=== PATIENT | female | born 1980 | race Hispanic/Latino ===

== ENCOUNTER 2023-04-06 03:26 | Inpatient (IN) | payer OTHER ==
[~2023-04-06] VITALS: Ht 162.6 cm; Wt 84.8 kg
[2023-04-06 12:33] VITALS: BP 161/86; PULSE 85; RESP 16
[2023-04-06] MEDS ORDERED: AMLODIPINE 5 MG TAB PO ONE (13:17)
[2023-04-06] MEDS ORDERED: ACETAMINOPHEN 650 MG SUPPOSITORY RC PRN (13:30)
[2023-04-06 13:48] LABS: BASOPHILS # (AUTO) 0.08 K/uL (0.00-0.20); BASOPHILS % (AUTO) 1.1 % (0.0-5.0); EOSINOPHILS # (AUTO) 1.28 K/uL (0.00-0.70); HEMATOCRIT 25.1 % (36-48); IMMATURE GRANULOCYTE ABSOLUTE 0.03 K/uL (0-1); LYMPHOCYTES # (AUTO) 1.1 K/uL (1.0-4.8); LYMPHOCYTES % (AUTO) 14.9 % (21.0-51.0); MEAN CORPUSCULAR HEMOGLOBIN 25.5 pg (27.0-33.0); MEAN CORPUSCULAR HGB CONC 31.1 g/dL (32.0-36.0); MONOCYTES # (AUTO) 0.4 K/uL (0.1-1.0); MONOCYTES % (AUTO) 5.9 % (3.0-13.0); NEUTROPHILS # (AUTO) 4.2 K/uL (1.8-7.7); NEUTROPHILS % (AUTO) 59.7 % (40.0-77.0); PLATELET COUNT (AUTO) 434 K/uL (130-400); RED BLOOD CELL COUNT(AUTO) 3.06 MIL/uL (4.00-5.50); RED CELL DISTRIBUTION WIDTH 14.8 % (11.0-15.5); WHITE BLOOD COUNT (AUTO) 7.1 K/uL (4.8-10.8)
[2023-04-06] MEDS: MUPIROCIN OINTMENT 22 GM TUBE TP SCH ×2 (14:00→22:46)
[2023-04-06 14:16] LABS: ALBUMIN 2.4 g/dL (3.5-5.0); BILIRUBIN,TOTAL 0.2 mg/dL (0.2-1.0); CREATININE 1.3 mg/dL (0.5-1.5); INR 0.92 (0.85-1.15); PARTIAL THROMBOPLASTIN TIME 23.3 SEC (26.3-35.5); POTASSIUM 4.4 mmol/L (3.5-5.1); PROTHROMBIN TIME 9.9 SEC (9.6-11.6); TOTAL PROTEIN, SERUM 5.9 g/dL (6.0-8.3)
[2023-04-06] MEDS ORDERED: ONDANSETRON 4MG INJ IVP PRN (14:30)
[2023-04-06] MEDS: GABAPENTIN 300 MG CAPSULE PO SCH ×2 (16:28→20:33)
[2023-04-06] MEDS: FUROSEMIDE 20MG VIAL IV SCH (16:29)
[2023-04-06 16:33] VITALS: BP 163/85; PULSE 81; RESP 16
[2023-04-06] MEDS: INSULIN HUMULIN R 100 UNIT/ML 3ML SQ SCH ×2 (16:45→22:40)
[2023-04-06] MEDS ORDERED: LACTULOSE 20 GM/30 ML UDCUP PO ONE (17:00)
[2023-04-06] MEDS ORDERED: POLYETHYLENE GLYCOL 3350 17 GM POWD.PACK PO ONE (17:00)
[2023-04-06 17:09] LABS: SARS-CoV-2, RNA, NAAT NEGATIVE SARS CoV-2 (NEGATIVE)
[2023-04-06 17:15] LABS: INFLUENZA TYPE A Negative For Type A (NEGATIVE); INFLUENZA TYPE B Negative For Type B (NEGATIVE)
[2023-04-06 17:43] LABS: APPEARANCE,URINE CLEAR (CLEAR); BILIRUBIN,URINE NEGATIVE (NEGATIVE); COLOR,URINE COLORLESS (YELLOW); GLUCOSE, URINE (UA) >=1000 mg/dL (NEGATIVE); KETONES,URINE NEGATIVE (NEGATIVE); LEUKOCYTE ESTERASE ,URINE NEGATIVE Leu/uL (NEGATIVE); NITRATE,URINE NEGATIVE (NEGATIVE); OCCULT BLOOD,URINE MODERATE (NEGATIVE); PH,URINE 6.5 (5.0-8.0); PROTEIN,URINE 20 mg/dL (NEGATIVE); UROBILINOGEN,URINE 0.2 mg/dL (0.2-1.0)
[2023-04-06 17:44] LABS: ADD UA MICROSCOPIC YES
[2023-04-06 17:51] LABS: AMPHET/METH SCREEN,URINE NEGATIVE (NEGATIVE); BARBITURATE SCREEN, URINE NEGATIVE (NEGATIVE); BENZODIAZEPINES SCREEN,URINE NEGATIVE (NEGATIVE); CANNABINOID SCREEN,URINE NEGATIVE (NEGATIVE); COCAINE SCREEN,URINE NEGATIVE (NEGATIVE); OPIATE SCREEN,URINE NEGATIVE (NEGATIVE); PHENCYCLIDINE SCREEN,URINE NEGATIVE (NEGATIVE)
[2023-04-06 18:04] LABS: RBC,URINE 26-50 /HPF (0-1); SQUAMOUS EPITHELIAL CELL,UR RARE /HPF (0-2); UNCLASSIFIED CRYSTAL 2 /HPF (None Seen)
[2023-04-06 18:59] VITALS: BP 152/75; PULSE 84; RESP 18
[2023-04-06 19:35] VITALS: O2SAT 98
[2023-04-06] MEDS ORDERED: VALS320T16 PO (20:12)
[2023-04-06] MEDS ORDERED: FERR325T29 PO (20:12)
[2023-04-06] MEDS ORDERED: DULO60CA64 PO (20:12)
[2023-04-06] MEDS ORDERED: HYDR12.54 PO (20:12)
[2023-04-06] MEDS ORDERED: METO10TA3 PO (20:12)
[2023-04-06] MEDS ORDERED: FURO20TA4 PO (20:12)
[2023-04-06] MEDS ORDERED: SITA1TAB6 PO (20:12)
[2023-04-06] MEDS ORDERED: TRAZ-187 PO (20:13)
[2023-04-06] MEDS ORDERED: GLIP10TA9 PO (20:16)
[2023-04-06] MEDS ORDERED: ALPR0.5T PO (20:18)
[2023-04-06] MEDS: SIMVASTATIN 20 MG TABLET PO SCH (20:33)
[2023-04-06] MEDS: METOPROLOL TARTRATE 25 MG TAB PO SCH (20:33)
[2023-04-06] MEDS: ACETAMINOPHEN 325 MG TAB PO PRN (21:31)
[2023-04-06 23:00] VITALS: BP 133/71; PULSE 74; RESP 18
[2023-04-07] VITALS (13 sets, daily range): BP systolic 123–160; BP diastolic 62–88; PULSE 72–87; RESP 12–20; O2SAT 97–98
[2023-04-07 01:46] LABS: CREATINE KINASE, TOTAL 47 U/L (21-232); MYOGLOBIN 43 ng/mL (10-92)
[2023-04-07] MEDS: FUROSEMIDE 20MG VIAL IV SCH ×2 (01:59→13:58)
[2023-04-07] MEDS: ACETAMINOPHEN 325 MG TAB PO PRN ×3 (03:17→22:40)
[2023-04-07 04:04] LABS: ABG BASE EXCESS 4.4 mmol/L (-2.0-3.0); ABG HCO3 29.9 mmol/L (21.0-28.0); ABG OXYGEN SATURATION 91.7 % (95.0-99.0); ABG PCO2 48 mmHg (32-45); ABG PH 7.415 (7.35-7.450); DEVICE COMMENT RR RN; PO2, ARTERIAL BG 61.6 mmHg (83.0-108.0); VENT MODE, BG RA (ROOM AIR)
[2023-04-07 04:27] LABS: BASOPHILS # (AUTO) 0.09 K/uL (0.00-0.20); BASOPHILS % (AUTO) 1.2 % (0.0-5.0); EOSINOPHILS # (AUTO) 1.46 K/uL (0.00-0.70); EOSINOPHILS % (AUTO) 19.7 % (0.0-8.0); HEMATOCRIT 22.3 % (36-48); IMMATURE GRANULOCYTE ABSOLUTE 0.03 K/uL (0-1); LYMPHOCYTES # (AUTO) 1.8 K/uL (1.0-4.8); MEAN CORPUSCULAR HEMOGLOBIN 25.3 pg (27.0-33.0); MEAN CORPUSCULAR HGB CONC 30.9 g/dL (32.0-36.0); MEAN CORPUSCULAR VOLUME 81.7 fL (79-99); MONOCYTES # (AUTO) 0.6 K/uL (0.1-1.0); MONOCYTES % (AUTO) 7.7 % (3.0-13.0); NEUTROPHILS # (AUTO) 3.5 K/uL (1.8-7.7); PLATELET COUNT (AUTO) 376 K/uL (130-400); RED BLOOD CELL COUNT(AUTO) 2.73 MIL/uL (4.00-5.50); RED CELL DISTRIBUTION WIDTH 14.6 % (11.0-15.5); WHITE BLOOD COUNT (AUTO) 7.4 K/uL (4.8-10.8)
[2023-04-07 04:35] LABS: B-TYPE NATRIURETIC PEPTIDE 993 pg/mL (0-100)
[2023-04-07 04:36] LABS: INR < 0.93 (0.85-1.15); PROTHROMBIN TIME 10.1 SEC (9.6-11.6)
[2023-04-07 04:37] LABS: ALBUMIN 2.2 g/dL (3.5-5.0); BILIRUBIN,TOTAL 0.2 mg/dL (0.2-1.0); CREATININE 1.5 mg/dL (0.5-1.5); PARTIAL THROMBOPLASTIN TIME 24.9 SEC (26.3-35.5); POTASSIUM 3.8 mmol/L (3.5-5.1); TOTAL PROTEIN, SERUM 5.8 g/dL (6.0-8.3)
[2023-04-07 04:53] LABS: HEMOGLOBIN A1C 9.8 % (4.0-6.0)
[2023-04-07] MEDS: INSULIN HUMULIN R 100 UNIT/ML 3ML SQ SCH ×4 (05:13→22:39)
[2023-04-07 07:07] LABS: HEMATOCRIT 22.6 % (36-48)
[2023-04-07] MEDS: MUPIROCIN OINTMENT 22 GM TUBE TP SCH ×3 (09:30→22:39)
[2023-04-07] MEDS: ENOXAPARIN SODIUM 40 MG/0.4 ML SYRINGE SQ SCH (09:42)
[2023-04-07] MEDS: FERROUS SULFATE 325 MG TABLET.DR PO SCH (09:45)
[2023-04-07] MEDS: METOPROLOL TARTRATE 25 MG TAB PO SCH ×2 (09:45→22:25)
[2023-04-07] MEDS: GABAPENTIN 300 MG CAPSULE PO SCH ×3 (09:45→22:25)
[2023-04-07] MEDS: PANTOPRAZOLE 40 MG TAB DR PO SCH (09:45)
[2023-04-07] MEDS: ASPIRIN 81MG CHEW TAB PO SCH (09:45)
[2023-04-07] MEDS: LOSARTAN 50 MG TABLET PO SCH (09:45)
[2023-04-07] MEDS: POLYETHYLENE GLYCOL 3350 17 GM POWD.PACK PO SCH (09:46)
[2023-04-07] MEDS: AMLODIPINE 5 MG TAB PO SCH (09:46)
[2023-04-07] MEDS ORDERED: IPRATROPIUM 0.5 MG/2.5 ML INH IH ONE (10:54)
[2023-04-07] MEDS ORDERED: INSULIN GLARGINE 100 UNITS/ML 10 ML VIAL SQ ONE (10:58)
[2023-04-07] MEDS ORDERED: ALPRAZOLAM 0.5 MG TABLET PO PRN (11:00)
[2023-04-07] MEDS: METOCLOPRAMIDE 10 MG TABLET PO SCH ×2 (13:58→22:25)
[2023-04-07] MEDS: CEFAZOLIN SODIUM 2 GM VIAL IVPB SCH (19:00)
[2023-04-07] MEDS ORDERED: TRAZODONE HCL 100 MG TABLET PO SCH (21:00)
[2023-04-07] MEDS: SIMVASTATIN 20 MG TABLET PO SCH (22:25)
[2023-04-07] MEDS: INSULIN GLARGINE 100 UNITS/ML 10 ML VIAL SQ SCH (22:38)
[2023-04-07] MEDS: IPRATROPIUM 0.5 MG/2.5 ML INH IH SCH (23:16)
[2023-04-08] VITALS (32 sets, daily range): BP systolic 96–200; BP diastolic 53–81; PULSE 60–88; RESP 5–19; TEMP 97.6–99; O2SAT 97–100
[2023-04-08 04:07] LABS: BASOPHILS # (AUTO) 0.09 K/uL (0.00-0.20); BASOPHILS % (AUTO) 1.1 % (0.0-5.0); EOSINOPHILS % (AUTO) 15.9 % (0.0-8.0); HEMATOCRIT 21.1 % (36-48); IMMATURE GRANULOCYTE ABSOLUTE 0.07 K/uL (0-1); LYMPHOCYTES # (AUTO) 2.6 K/uL (1.0-4.8); LYMPHOCYTES % (AUTO) 31.3 % (21.0-51.0); MEAN CORPUSCULAR HEMOGLOBIN 25.4 pg (27.0-33.0); MEAN CORPUSCULAR HGB CONC 31.3 g/dL (32.0-36.0); MEAN CORPUSCULAR VOLUME 81.2 fL (79-99); MONOCYTES # (AUTO) 0.7 K/uL (0.1-1.0); NEUTROPHILS # (AUTO) 3.5 K/uL (1.8-7.7); NEUTROPHILS % (AUTO) 42.8 % (40.0-77.0); PLATELET COUNT (AUTO) 399 K/uL (130-400); RED CELL DISTRIBUTION WIDTH 14.9 % (11.0-15.5); WHITE BLOOD COUNT (AUTO) 8.2 K/uL (4.8-10.8)
[2023-04-08 04:08] LABS: CREATININE 1.5 mg/dL (0.5-1.5)
[2023-04-08 04:15] LABS: B-TYPE NATRIURETIC PEPTIDE 1220 pg/mL (0-100)
[2023-04-08 04:17] LABS: ALBUMIN 2.1 g/dL (3.5-5.0); BILIRUBIN,TOTAL 0.2 mg/dL (0.2-1.0); MAGNESIUM 2.1 mg/dL (1.80-2.40); TOTAL PROTEIN, SERUM 5.6 g/dL (6.0-8.3)
[2023-04-08 04:18] LABS: INR < 0.93 (0.85-1.15); PROTHROMBIN TIME 10.3 SEC (9.6-11.6)
[2023-04-08 04:20] LABS: PARTIAL THROMBOPLASTIN TIME 25.1 SEC (26.3-35.5)
[2023-04-08] MEDS: IPRATROPIUM 0.5 MG/2.5 ML INH IH SCH ×3 (06:46→18:00)
[2023-04-08] MEDS: INSULIN HUMULIN R 100 UNIT/ML 3ML SQ SCH ×2 (07:30→11:30)
[2023-04-08] MEDS: INSULIN GLARGINE 100 UNITS/ML 10 ML VIAL SQ SCH (07:30)
[2023-04-08] MEDS: LOSARTAN 50 MG TABLET PO SCH (07:39)
[2023-04-08] MEDS: ASPIRIN 81MG CHEW TAB PO SCH (07:39)
[2023-04-08] MEDS: POLYETHYLENE GLYCOL 3350 17 GM POWD.PACK PO SCH (07:40)
[2023-04-08] MEDS: DULOXETINE HCL 30 MG CAP PO SCH (07:40)
[2023-04-08] MEDS: PANTOPRAZOLE 40 MG TAB DR PO SCH (07:40)
[2023-04-08] MEDS: METOCLOPRAMIDE 10 MG TABLET PO SCH ×2 (07:40→12:58)
[2023-04-08] MEDS: GABAPENTIN 300 MG CAPSULE PO SCH ×2 (07:40→12:58)
[2023-04-08] MEDS: AMLODIPINE 5 MG TAB PO SCH (07:40)
[2023-04-08] MEDS: FERROUS SULFATE 325 MG TABLET.DR PO SCH (07:40)
[2023-04-08] MEDS: ENOXAPARIN SODIUM 40 MG/0.4 ML SYRINGE SQ SCH (07:40)
[2023-04-08] MEDS: NICOTINE 14 MG/ 24 HR PATCH TD SCH ×2 (07:48→07:49)
[2023-04-08] MEDS: METOPROLOL TARTRATE 25 MG TAB PO SCH (07:49)
[2023-04-08] MEDS: MUPIROCIN OINTMENT 22 GM TUBE TP SCH ×3 (07:51→21:00)
[2023-04-08] MEDS ORDERED: HYDROCHLOROTHIAZIDE 25 MG TABLET PO SCH (09:00)
[2023-04-08] MEDS ORDERED: HYDROCHLOROTHIAZIDE PO SCH (09:00)
[2023-04-08] MEDS ORDERED: DULOXETINE HCL PO SCH (09:00)
[2023-04-08] MEDS ORDERED: NOREPINEPHRINE BITARTRATE 8 MG in DEXTROSE 5%-WATER 250 ML IV PRN (09:30)
[2023-04-08] MEDS ORDERED: AMINOCAPROIC ACID 5,000MG VIAL 15,000 MG in 0.9% NACL 500ML IV.SOLN 420 ML IV PRN (09:30)
[2023-04-08] MEDS ORDERED: EPINEPHRINE PF 1MG (1:1,000) 10 MG in 0.9% NACL 250ML 240 ML IV PRN ×2 (09:30→15:30)
[2023-04-08] MEDS: FUROSEMIDE 20MG VIAL IV SCH (12:57)
[2023-04-08 13:44] LABS: HEMATOCRIT 30.5 % (36-48)
[2023-04-08] MEDS ORDERED: LIDOCAINE PF 100MG/5ML (2%) SYRINGE 5ML ONE (14:46)
[2023-04-08] MEDS ORDERED: ESMOLOL HCL 10 MG/ML 10 ML VIAL ONE (14:46)
[2023-04-08] MEDS ORDERED: PROTAMINE SULFATE 10 MG/ML 25ML VIAL IV ONE (14:46)
[2023-04-08] MEDS ORDERED: KETAMINE 50MG/ML SYRINGE 50 MG/ML DISP.SYRIN ONE ×2 (14:47→17:58)
[2023-04-08] MEDS ORDERED: NOREPINEPHRINE BITARTRATE 1 MG/1 ML ML IV ONE (14:47)
[2023-04-08] MEDS ORDERED: ROCURONIUM 10MG/1ML SYR 10 MG/ML ML ONE ×2 (14:47→15:37)
[2023-04-08] MEDS ORDERED: FENTANYL CITRATE PF 50 MCG/1 ML 20ML VIAL IJ ONE (14:47)
[2023-04-08] MEDS ORDERED: AMINOCAPROIC ACID 5,000MG VIAL ONE (14:47)
[2023-04-08] MEDS ORDERED: MIDAZOLAM HCL 1 MG/ML 2ML VIAL ONE (14:47)
[2023-04-08] MEDS ORDERED: PROPOFOL 10 MG/ML 20ML VIAL IV ONE (14:47)
[2023-04-08] MEDS ORDERED: EPINEPHRINE PF 1MG (1:1,000) 1 MG/ML AMP ONE (14:47)
[2023-04-08] MEDS ORDERED: FENTANYL CITRATE PF 50 MCG/1 ML 5ML AMP IV ONE ×3 (14:50→19:17)
[2023-04-08] MEDS ORDERED: CEFAZOLIN SODIUM 2 GM VIAL ONE (15:04)
[2023-04-08] MEDS ORDERED: CEFAZOLIN SODIUM 1 GM VIAL ONE (15:25)
[2023-04-08] MEDS ORDERED: PAPAVERINE HCL 30 MG/ML 2ML VIAL ONE (15:26)
[2023-04-08] MEDS ORDERED: GLUCAGON 1MG KIT 1 MG ML IM PRN (15:30)
[2023-04-08] MEDS ORDERED: INSULIN REGULAR, HUMAN 3ML 100 UNIT in 0.9%NACL 100ML 99 ML IV SCH ×2 (15:30)
[2023-04-08] MEDS ORDERED: NITROGLYCERIN 50MG/D5W 250ML 250 BOT IV SCH (15:30)
[2023-04-08] MEDS: CEFAZOLIN SODIUM 2 GM VIAL IVPB SCH ×3 (15:30→20:40)
[2023-04-08] MEDS ORDERED: 0.9% NACL 500ML IV.SOLN 500 ML IV SCH (15:30)
[2023-04-08] MEDS ORDERED: MAGNESIUM HYDROXIDE 30 ML/UDCUP PO PRN (15:30)
[2023-04-08] MEDS ORDERED: ALBUMIN (HUMAN) 5% 250 ML IV PRN (15:30)
[2023-04-08] MEDS ORDERED: 0.9%NACL 1000ML 1,000 ML IV SCH (15:30)
[2023-04-08] MEDS ORDERED: ACETAMINOPHEN 650 MG SUPPOSITORY RC PRN (15:30)
[2023-04-08] MEDS ORDERED: NOREPINEPHRINE BITARTRATE 8 MG in 0.9% NACL 250ML 250 ML IV PRN (15:30)
[2023-04-08] MEDS ORDERED: CALCIUM GLUC 1GM 1 GM in 0.9%NACL 50ML 50 ML IV PRN (15:30)
[2023-04-08] MEDS ORDERED: SODIUM BICARB 50MEQ 50ML VIAL IV PRN (15:30)
[2023-04-08] MEDS ORDERED: POTASSIUM PHOS 15 mMOL+NS250ML 250 ML IV PRN (15:30)
[2023-04-08] MEDS ORDERED: 0.9%NACL 10ML VIAL IVP PRN (15:30)
[2023-04-08] MEDS ORDERED: MORPHINE 2 MG SYG IV PRN (15:30)
[2023-04-08] MEDS ORDERED: DEXTROSE 50%-WATER 50 ML DISP.SYRIN IV PRN (15:30)
[2023-04-08] MEDS ORDERED: MAGNESIUM 2GM PREMIX 50ML 50 ML IV PRN (15:30)
[2023-04-08] MEDS ORDERED: LACTULOSE 20 GM/30 ML UDCUP PO PRN (15:30)
[2023-04-08] MEDS ORDERED: AMINOCAPROIC ACID 5,000MG VIAL 15,000 MG in 0.9% NACL 250ML 250 ML IV SCH (15:30)
[2023-04-08] MEDS ORDERED: PROPOFOL 1000 MG/100 ML 100 ML IV PRN (15:30)
[2023-04-08] MEDS ORDERED: ACETAMINOPHEN 325 MG TAB PO PRN (15:30)
[2023-04-08] MEDS ORDERED: MORPHINE 4 MG SYG IV PRN (15:30)
[2023-04-08 15:42] LABS: ABG BASE EXCESS 2.3 mmol/L (-2.0-3.0); ABG HCO3 27.5 mmol/L (21.0-28.0); ABG OXYGEN SATURATION 98.8 % (95.0-99.0); ABG PCO2 46 mmHg (32-45); ABG PH 7.394 (7.35-7.450); CARBON MONOXIDE 1.7; DEVICE COMMENT 1; HHb 1.2; PO2, ARTERIAL BG 186.9 mmHg (83.0-108.0)
[2023-04-08] MEDS ORDERED: ASPIRIN 81MG CHEW TAB NG ONE (19:00)
[2023-04-08] MEDS ORDERED: CALCIUM GLUC 1GM/10ML VIAL ONE (19:13)
[2023-04-08 19:20] LABS: ABG BASE EXCESS 3.1 mmol/L (-2.0-3.0); ABG HCO3 25.6 mmol/L (21.0-28.0); ABG PCO2 31 mmHg (32-45); ABG PH 7.542 (7.35-7.450); CARBON MONOXIDE 1.3; DEVICE COMMENT 3; PO2, ARTERIAL BG 400.9 mmHg (83.0-108.0)
[2023-04-08 19:42] LABS: ABG BASE EXCESS 1.2 mmol/L (-2.0-3.0); ABG HCO3 25.1 mmol/L (21.0-28.0); ABG OXYGEN SATURATION 99.4 % (95.0-99.0); ABG PCO2 36 mmHg (32-45); ABG PH 7.458 (7.35-7.450); CARBON MONOXIDE 1.6; HHb 0.6; PO2, ARTERIAL BG 456.5 mmHg (83.0-108.0); VENT MODE, BG SIMV,PS10 (ROOM AIR)
[2023-04-08 20:10] LABS: HEMATOCRIT 23.8 % (36-48); MEAN CORPUSCULAR HEMOGLOBIN 26.3 pg (27.0-33.0); MEAN CORPUSCULAR HGB CONC 31.9 g/dL (32.0-36.0); MEAN CORPUSCULAR VOLUME 82.4 fL (79-99); RED BLOOD CELL COUNT(AUTO) 2.89 MIL/uL (4.00-5.50); RED CELL DISTRIBUTION WIDTH 14.9 % (11.0-15.5); WHITE BLOOD COUNT (AUTO) 14.4 K/uL (4.8-10.8)
[2023-04-08] MEDS: ONDANSETRON 4MG INJ IV PRN (20:14)
[2023-04-08] MEDS: POTASSIUM CHLORIDE 20MEQ/100ML 100 ML IV PRN ×3 (20:16→22:26)
[2023-04-08 20:20] LABS: INR 1.02 (0.85-1.15); PROTHROMBIN TIME 11.8 SEC (9.6-11.6)
[2023-04-08 20:21] LABS: PARTIAL THROMBOPLASTIN TIME 21.1 SEC (26.3-35.5)
[2023-04-08 20:26] LABS: ABG BASE EXCESS -0.4 mmol/L (-2.0-3.0); ABG HCO3 22.6 mmol/L (21.0-28.0); ABG OXYGEN SATURATION 99.1 % (95.0-99.0); ABG PCO2 30 mmHg (32-45); ABG PH 7.494 (7.35-7.450); CARBON MONOXIDE 1.1; HHb 0.9; PO2, ARTERIAL BG 396.4 mmHg (83.0-108.0); VENT MODE, BG SIMV,PS10 (ROOM AIR)
[2023-04-08 20:26] LABS: CREATININE 1.3 mg/dL (0.5-1.5); MAGNESIUM 1.5 mg/dL (1.80-2.40); PHOSPHORUS 4.7 mg/dL (2.5-4.9)
[2023-04-08 21:17] LABS: ABG BASE EXCESS 2.4 mmol/L (-2.0-3.0); ABG HCO3 26.7 mmol/L (21.0-28.0); ABG OXYGEN SATURATION 98.8 % (95.0-99.0); ABG PCO2 40 mmHg (32-45); ABG PH 7.445 (7.35-7.450); HHb 1.2; PO2, ARTERIAL BG 204.5 mmHg (83.0-108.0); VENT MODE, BG SIMV,PS10 (ROOM AIR)
[2023-04-08] MEDS: HYDROCODONE/ACETAMINOPHEN 7.5/325 MG TAB PO PRN (21:20)
[2023-04-08 22:19] LABS: ABG BASE EXCESS 3.1 mmol/L (-2.0-3.0); ABG HCO3 28.1 mmol/L (21.0-28.0); ABG OXYGEN SATURATION 98.1 % (95.0-99.0); ABG PCO2 45 mmHg (32-45); ABG PH 7.416 (7.35-7.450); CARBON MONOXIDE 1.5; HHb 1.9; PO2, ARTERIAL BG 133.9 mmHg (83.0-108.0); VENT MODE, BG SIMV (ROOM AIR)
[2023-04-08] MEDS: DOCUSATE SODIUM 100 MG CAP PO SCH (22:31)
[2023-04-08] MEDS: FAMOTIDINE 20MG VIAL IV SCH (22:31)
[2023-04-08] MEDS: SIMVASTATIN 20 MG TABLET PO SCH (22:31)
[2023-04-08 23:11] LABS: ABG BASE EXCESS 2.7 mmol/L (-2.0-3.0); ABG HCO3 27.5 mmol/L (21.0-28.0); ABG OXYGEN SATURATION 97.9 % (95.0-99.0); ABG PCO2 44 mmHg (32-45); ABG PH 7.418 (7.35-7.450); CARBON MONOXIDE 1.5; HHb 2.1; PO2, ARTERIAL BG 128.6 mmHg (83.0-108.0)
[2023-04-09] VITALS (82 sets, daily range): BP systolic 1–198; BP diastolic 0–294; PULSE 74–89; RESP 5–63; TEMP 99.6–100.8; O2SAT 96–100
[2023-04-09 00:33] LABS: ABG BASE EXCESS 2.6 mmol/L (-2.0-3.0); ABG HCO3 27.5 mmol/L (21.0-28.0); ABG OXYGEN SATURATION 98.3 % (95.0-99.0); ABG PCO2 45 mmHg (32-45); ABG PH 7.409 (7.35-7.450); CARBON MONOXIDE 1.9; HHb 1.7; PO2, ARTERIAL BG 136.9 mmHg (83.0-108.0); VENT MODE, BG AM,40 (ROOM AIR)
[2023-04-09 03:59] LABS: HEMATOCRIT 24.7 % (36-48); MEAN CORPUSCULAR HGB CONC 31.2 g/dL (32.0-36.0); MEAN CORPUSCULAR VOLUME 83.4 fL (79-99); RED BLOOD CELL COUNT(AUTO) 2.96 MIL/uL (4.00-5.50); RED CELL DISTRIBUTION WIDTH 15.2 % (11.0-15.5); WHITE BLOOD COUNT (AUTO) 14.1 K/uL (4.8-10.8)
[2023-04-09 04:08] LABS: INR 0.94 (0.85-1.15); PROTHROMBIN TIME 10.9 SEC (9.6-11.6)
[2023-04-09 04:09] LABS: PARTIAL THROMBOPLASTIN TIME 23.8 SEC (26.3-35.5)
[2023-04-09 04:12] LABS: CREATININE 1.3 mg/dL (0.5-1.5); MAGNESIUM 2.3 mg/dL (1.80-2.40); PHOSPHORUS 4.6 mg/dL (2.5-4.9); POTASSIUM 4.3 mmol/L (3.5-5.1)
[2023-04-09] MEDS: CEFAZOLIN SODIUM 2 GM VIAL IVPB SCH ×3 (04:12→18:08)
[2023-04-09 05:10] LABS: ABG BASE EXCESS 3.4 mmol/L (-2.0-3.0); ABG HCO3 28.7 mmol/L (21.0-28.0); ABG OXYGEN SATURATION 95.3 % (95.0-99.0); ABG PCO2 48 mmHg (32-45); ABG PH 7.398 (7.35-7.450); CARBON MONOXIDE 1.8; HHb 4.6; PO2, ARTERIAL BG 85.8 mmHg (83.0-108.0); VENT MODE, BG NC,28 (ROOM AIR)
[2023-04-09] MEDS: IPRATROPIUM 0.5 MG/2.5 ML INH IH SCH ×5 (06:48→23:50)
[2023-04-09 07:38] LABS: ABG BASE EXCESS 1.5 mmol/L (-2.0-3.0); ABG HCO3 26.4 mmol/L (21.0-28.0); ABG OXYGEN SATURATION 96.6 % (95.0-99.0); ABG PCO2 43 mmHg (32-45); ABG PH 7.404 (7.35-7.450); HHb 3.3; PO2, ARTERIAL BG 98.4 mmHg (83.0-108.0); VENT MODE, BG 2LNC (ROOM AIR)
[2023-04-09] MEDS: DOCUSATE SODIUM 100 MG CAP PO SCH ×2 (07:48→20:33)
[2023-04-09] MEDS: FUROSEMIDE 20MG VIAL IV SCH ×2 (07:48→20:33)
[2023-04-09] MEDS: NICOTINE 14 MG/ 24 HR PATCH TD SCH (07:48)
[2023-04-09] MEDS: POLYETHYLENE GLYCOL 3350 17 GM POWD.PACK PO SCH (07:48)
[2023-04-09] MEDS: FERROUS SULFATE 325 MG TABLET.DR PO SCH (07:48)
[2023-04-09] MEDS: DULOXETINE HCL 30 MG CAP PO SCH (07:48)
[2023-04-09] MEDS: ASPIRIN 81MG CHEW TAB PO SCH (07:49)
[2023-04-09] MEDS: HYDROCODONE/ACETAMINOPHEN 5/325 MG TAB PO PRN (07:50)
[2023-04-09] MEDS: ONDANSETRON 4MG INJ IV PRN ×2 (07:51→22:27)
[2023-04-09] MEDS: MUPIROCIN OINTMENT 22 GM TUBE TP SCH ×3 (09:00→19:50)
[2023-04-09] MEDS ORDERED: HEPARIN 10,000 UNIT/10ML (1,000 UNIT/ML) VIAL ONE (10:22)
[2023-04-09] MEDS ORDERED: MORPHINE 2 MG SYG IV PRN (10:30)
[2023-04-09] MEDS: HYDROCODONE/ACETAMINOPHEN 7.5/325 MG TAB PO PRN ×3 (12:08→23:39)
[2023-04-09] MEDS: SIMVASTATIN 20 MG TABLET PO SCH (20:33)
[2023-04-09] MEDS: FAMOTIDINE 20MG VIAL IV SCH (20:33)
[2023-04-09] MEDS: METOPROLOL TARTRATE 25 MG TAB PO SCH (20:33)
[2023-04-10] VITALS (37 sets, daily range): BP systolic 111–165; BP diastolic 58–83; PULSE 79–92; RESP 15–24; O2SAT 95–100
[2023-04-10 03:45] LABS: HEMATOCRIT 21.9 % (36-48); MEAN CORPUSCULAR HEMOGLOBIN 25.8 pg (27.0-33.0); MEAN CORPUSCULAR HGB CONC 30.6 g/dL (32.0-36.0); MEAN CORPUSCULAR VOLUME 84.2 fL (79-99); RED BLOOD CELL COUNT(AUTO) 2.6 MIL/uL (4.00-5.50); RED CELL DISTRIBUTION WIDTH 15.9 % (11.0-15.5); WHITE BLOOD COUNT (AUTO) 13.8 K/uL (4.8-10.8)
[2023-04-10 04:02] LABS: CREATININE 1.3 mg/dL (0.5-1.5); POTASSIUM 4.1 mmol/L (3.5-5.1)
[2023-04-10 04:43] LABS: HEMATOCRIT 23.9 % (36-48)
[2023-04-10] MEDS: ONDANSETRON 4MG INJ IV PRN ×3 (05:35→23:04)
[2023-04-10] MEDS: HYDROCODONE/ACETAMINOPHEN 7.5/325 MG TAB PO PRN ×3 (05:35→19:33)
[2023-04-10] MEDS: IPRATROPIUM 0.5 MG/2.5 ML INH IH SCH ×4 (06:55→23:43)
[2023-04-10] MEDS: DOCUSATE SODIUM 100 MG CAP PO SCH ×2 (09:00→21:13)
[2023-04-10] MEDS: POLYETHYLENE GLYCOL 3350 17 GM POWD.PACK PO SCH (09:00)
[2023-04-10] MEDS: METOPROLOL TARTRATE 25 MG TAB PO SCH ×2 (09:11→21:13)
[2023-04-10] MEDS: NICOTINE 14 MG/ 24 HR PATCH TD SCH (09:11)
[2023-04-10] MEDS: DULOXETINE HCL 30 MG CAP PO SCH (09:12)
[2023-04-10] MEDS: FERROUS SULFATE 325 MG TABLET.DR PO SCH (09:12)
[2023-04-10] MEDS: ASPIRIN 81MG CHEW TAB PO SCH (09:13)
[2023-04-10] MEDS: FUROSEMIDE 20 MG TABLET PO SCH ×2 (09:13→21:13)
[2023-04-10] MEDS: MUPIROCIN OINTMENT 22 GM TUBE TP SCH ×3 (09:30→21:15)
[2023-04-10] MEDS: ACETAMINOPHEN 325 MG TAB PO PRN ×3 (09:30→23:01)
[2023-04-10] MEDS: INSULIN HUMULIN R 100 UNIT/ML 3ML SQ SCH ×3 (11:31→21:15)
[2023-04-10] MEDS ORDERED: INSULIN GLARGINE 100 UNITS/ML 10 ML VIAL SQ SCH (21:00)
[2023-04-10] MEDS: SIMVASTATIN 20 MG TABLET PO SCH (21:13)
[2023-04-10] MEDS: FAMOTIDINE 20MG VIAL IV SCH (21:13)
[2023-04-11] VITALS (15 sets, daily range): BP systolic 125–160; BP diastolic 60–90; PULSE 76–89; RESP 18; O2SAT 95–97
[2023-04-11] MEDS: HYDROCODONE/ACETAMINOPHEN 7.5/325 MG TAB PO PRN ×2 (02:03→21:10)
[2023-04-11 05:17] LABS: HEMATOCRIT 22.5 % (36-48); MEAN CORPUSCULAR HEMOGLOBIN 26.4 pg (27.0-33.0); MEAN CORPUSCULAR HGB CONC 31.6 g/dL (32.0-36.0); MEAN CORPUSCULAR VOLUME 83.6 fL (79-99); RED BLOOD CELL COUNT(AUTO) 2.69 MIL/uL (4.00-5.50); RED CELL DISTRIBUTION WIDTH 15.8 % (11.0-15.5); WHITE BLOOD COUNT (AUTO) 13.1 K/uL (4.8-10.8)
[2023-04-11 05:33] LABS: BILIRUBIN,TOTAL 0.2 mg/dL (0.2-1.0); CREATININE 1.2 mg/dL (0.5-1.5); POTASSIUM 4.4 mmol/L (3.5-5.1)
[2023-04-11] MEDS: INSULIN HUMULIN R 100 UNIT/ML 3ML SQ SCH ×4 (06:10→20:29)
[2023-04-11] MEDS: IPRATROPIUM 0.5 MG/2.5 ML INH IH SCH ×4 (06:44→23:10)
[2023-04-11] MEDS: HYDROCODONE/ACETAMINOPHEN 5/325 MG TAB PO PRN ×2 (08:54→16:35)
[2023-04-11] MEDS: DULOXETINE HCL 30 MG CAP PO SCH (08:54)
[2023-04-11] MEDS: ENOXAPARIN SODIUM 30 MG/0.3 ML SQ SCH (08:54)
[2023-04-11] MEDS: ASPIRIN 81MG CHEW TAB PO SCH (08:55)
[2023-04-11] MEDS: DOCUSATE SODIUM 100 MG CAP PO SCH ×2 (08:55→20:27)
[2023-04-11] MEDS: METOPROLOL TARTRATE 25 MG TAB PO SCH ×2 (08:55→21:09)
[2023-04-11] MEDS: MUPIROCIN OINTMENT 22 GM TUBE TP SCH ×3 (08:56→21:15)
[2023-04-11] MEDS: FERROUS SULFATE 325 MG TABLET.DR PO SCH (08:56)
[2023-04-11] MEDS: POLYETHYLENE GLYCOL 3350 17 GM POWD.PACK PO SCH (08:56)
[2023-04-11] MEDS: FUROSEMIDE 20 MG TABLET PO SCH ×2 (08:56→20:27)
[2023-04-11] MEDS: NICOTINE 14 MG/ 24 HR PATCH TD SCH (08:57)
[2023-04-11] MEDS: SIMVASTATIN 20 MG TABLET PO SCH (20:27)
[2023-04-11] MEDS: MAGNESIUM OXIDE 400 MG TABLET PO SCH (21:11)
[2023-04-11] MEDS: INSULIN GLARGINE 100 UNITS/ML 10 ML VIAL SQ SCH (21:13)
[2023-04-11] MEDS: FAMOTIDINE 20MG VIAL IV SCH (21:50)
[2023-04-11] MEDS: ONDANSETRON 4MG INJ IV PRN (21:55)
[2023-04-12] VITALS (14 sets, daily range): BP systolic 138–172; BP diastolic 50–85; PULSE 66–80; RESP 18–20; O2SAT 95–97
[2023-04-12] MEDS: HYDROCODONE/ACETAMINOPHEN 7.5/325 MG TAB PO PRN ×3 (03:13→23:09)
[2023-04-12 04:07] LABS: CREATININE 0.9 mg/dL (0.5-1.5); POTASSIUM 3.7 mmol/L (3.5-5.1)
[2023-04-12 05:45] LABS: HEMATOCRIT 21.7 % (36-48); MEAN CORPUSCULAR HEMOGLOBIN 25.8 pg (27.0-33.0); MEAN CORPUSCULAR HGB CONC 31.8 g/dL (32.0-36.0); MEAN CORPUSCULAR VOLUME 81.3 fL (79-99); RED BLOOD CELL COUNT(AUTO) 2.67 MIL/uL (4.00-5.50); RED CELL DISTRIBUTION WIDTH 15.3 % (11.0-15.5); WHITE BLOOD COUNT (AUTO) 9.5 K/uL (4.8-10.8)
[2023-04-12] MEDS: IPRATROPIUM 0.5 MG/2.5 ML INH IH SCH ×4 (06:34→23:32)
[2023-04-12] MEDS: INSULIN HUMULIN R 100 UNIT/ML 3ML SQ SCH ×3 (07:30→17:09)
[2023-04-12] MEDS: HYDROCODONE/ACETAMINOPHEN 5/325 MG TAB PO PRN ×2 (08:22→18:53)
[2023-04-12] MEDS: MUPIROCIN OINTMENT 22 GM TUBE TP SCH ×3 (09:00→20:43)
[2023-04-12] MEDS: NICOTINE 14 MG/ 24 HR PATCH TD SCH (10:10)
[2023-04-12] MEDS: POLYETHYLENE GLYCOL 3350 17 GM POWD.PACK PO SCH (10:10)
[2023-04-12] MEDS: ASPIRIN 81MG CHEW TAB PO SCH (10:12)
[2023-04-12] MEDS: VITAMIN B COMPLEX 1 CAPSULE PO SCH (10:12)
[2023-04-12] MEDS: ENOXAPARIN SODIUM 30 MG/0.3 ML SQ SCH (10:12)
[2023-04-12] MEDS: METOPROLOL TARTRATE 25 MG TAB PO SCH ×2 (10:13→20:41)
[2023-04-12] MEDS: FERROUS SULFATE 325 MG TABLET.DR PO SCH (10:13)
[2023-04-12] MEDS: MULTIVITAMIN WITH MINERALS TABLET PO SCH (10:13)
[2023-04-12] MEDS: DULOXETINE HCL 30 MG CAP PO SCH (10:13)
[2023-04-12] MEDS: FUROSEMIDE 20 MG TABLET PO SCH ×2 (10:13→20:42)
[2023-04-12] MEDS: DOCUSATE SODIUM 100 MG CAP PO SCH ×2 (10:19→20:42)
[2023-04-12] MEDS: ONDANSETRON 4MG INJ IV PRN (11:35)
[2023-04-12 13:15] LABS: HEMATOCRIT 22.4 % (36-48)
[2023-04-12] MEDS: LISINOPRIL 20 MG TABLET PO SCH (16:25)
[2023-04-12] MEDS: GABAPENTIN 100 MG CAPSULE PO SCH (20:41)
[2023-04-12] MEDS: SIMVASTATIN 20 MG TABLET PO SCH (20:41)
[2023-04-12] MEDS: MAGNESIUM OXIDE 400 MG TABLET PO SCH (20:41)
[2023-04-12] MEDS: FAMOTIDINE 20MG VIAL IV SCH (20:42)
[2023-04-13] VITALS (19 sets, daily range): BP systolic 129–169; BP diastolic 60–96; PULSE 63–77; RESP 18–20; O2SAT 96–98
[2023-04-13] MEDS: INSULIN HUMULIN R 100 UNIT/ML 3ML SQ SCH ×5 (00:10→21:08)
[2023-04-13] MEDS: INSULIN GLARGINE 100 UNITS/ML 10 ML VIAL SQ SCH ×2 (00:11→21:09)
[2023-04-13 03:54] LABS: CREATININE 0.9 mg/dL (0.5-1.5); POTASSIUM 3.5 mmol/L (3.5-5.1)
[2023-04-13 03:58] LABS: BASOPHILS # (AUTO) 0.08 K/uL (0.00-0.20); EOSINOPHILS # (AUTO) 0.51 K/uL (0.00-0.70); EOSINOPHILS % (AUTO) 6.2 % (0.0-8.0); IMMATURE GRANULOCYTE ABSOLUTE 0.15 K/uL (0-1); LYMPHOCYTES # (AUTO) 1.6 K/uL (1.0-4.8); LYMPHOCYTES % (AUTO) 19.5 % (21.0-51.0); MEAN CORPUSCULAR HEMOGLOBIN 25.5 pg (27.0-33.0); MEAN CORPUSCULAR HGB CONC 30.5 g/dL (32.0-36.0); MEAN CORPUSCULAR VOLUME 83.7 fL (79-99); MONOCYTES # (AUTO) 0.9 K/uL (0.1-1.0); MONOCYTES % (AUTO) 10.9 % (3.0-13.0); NEUTROPHILS % (AUTO) 60.6 % (40.0-77.0); PLATELET COUNT (AUTO) 469 K/uL (130-400); RED BLOOD CELL COUNT(AUTO) 2.51 MIL/uL (4.00-5.50); RED CELL DISTRIBUTION WIDTH 14.8 % (11.0-15.5); WHITE BLOOD COUNT (AUTO) 8.2 K/uL (4.8-10.8)
[2023-04-13] MEDS: HYDROCODONE/ACETAMINOPHEN 5/325 MG TAB PO PRN ×3 (04:42→20:53)
[2023-04-13 05:20] LABS: HEMATOCRIT 21.3 % (36-48)
[2023-04-13] MEDS: ONDANSETRON 4MG INJ IV PRN (06:36)
[2023-04-13] MEDS: IPRATROPIUM 0.5 MG/2.5 ML INH IH SCH ×4 (07:00→23:59)
[2023-04-13] MEDS: ENOXAPARIN SODIUM 30 MG/0.3 ML SQ SCH ×2 (09:00→12:30)
[2023-04-13] MEDS: METOPROLOL TARTRATE 25 MG TAB PO SCH ×2 (09:03→20:52)
[2023-04-13] MEDS: MULTIVITAMIN WITH MINERALS TABLET PO SCH (09:03)
[2023-04-13] MEDS: VITAMIN B COMPLEX 1 CAPSULE PO SCH (09:03)
[2023-04-13] MEDS: DOCUSATE SODIUM 100 MG CAP PO SCH ×2 (09:03→20:52)
[2023-04-13] MEDS: GABAPENTIN 100 MG CAPSULE PO SCH ×3 (09:04→20:52)
[2023-04-13] MEDS: LISINOPRIL 20 MG TABLET PO SCH (09:04)
[2023-04-13] MEDS: FUROSEMIDE 20 MG TABLET PO SCH (09:05)
[2023-04-13] MEDS: DULOXETINE HCL 30 MG CAP PO SCH (09:05)
[2023-04-13] MEDS: FERROUS SULFATE 325 MG TABLET.DR PO SCH (09:05)
[2023-04-13] MEDS: ASPIRIN 81MG CHEW TAB PO SCH (09:05)
[2023-04-13] MEDS: POLYETHYLENE GLYCOL 3350 17 GM POWD.PACK PO SCH (09:05)
[2023-04-13] MEDS: NICOTINE 14 MG/ 24 HR PATCH TD SCH (09:06)
[2023-04-13] MEDS: MUPIROCIN OINTMENT 22 GM TUBE TP SCH ×3 (09:07→21:10)
[2023-04-13] MEDS: HYDROCODONE/ACETAMINOPHEN 7.5/325 MG TAB PO PRN ×2 (09:15→18:20)
[2023-04-13] MEDS: KCL 20 MEQ ERTAB PO PRN ×2 (12:29→14:02)
[2023-04-13] MEDS ORDERED: POTASSIUM CHLORIDE 10% ELIXIR 20 MEQ/15 ML UDCUP PO PRN (12:30)
[2023-04-13] MEDS ORDERED: FUROSEMIDE 40MG VIAL IV ONE (15:00)
[2023-04-13] MEDS: FUROSEMIDE 40 MG TABLET PO SCH (15:32)
[2023-04-13] MEDS: FAMOTIDINE 20MG VIAL IV SCH (20:51)
[2023-04-13] MEDS: SIMVASTATIN 20 MG TABLET PO SCH (20:52)
[2023-04-13] MEDS: MAGNESIUM OXIDE 400 MG TABLET PO SCH (20:53)
[2023-04-14] VITALS (10 sets, daily range): BP systolic 145–157; BP diastolic 73–85; PULSE 68–88; RESP 16–20; O2SAT 96–98
[2023-04-14] MEDS: HYDROCODONE/ACETAMINOPHEN 7.5/325 MG TAB PO PRN ×3 (01:57→19:52)
[2023-04-14] MEDS: FUROSEMIDE 40 MG TABLET PO SCH ×2 (02:54→15:45)
[2023-04-14 04:01] LABS: BASOPHILS # (AUTO) 0.08 K/uL (0.00-0.20); EOSINOPHILS # (AUTO) 0.64 K/uL (0.00-0.70); EOSINOPHILS % (AUTO) 8.2 % (0.0-8.0); HEMATOCRIT 26.9 % (36-48); IMMATURE GRANULOCYTE ABSOLUTE 0.18 K/uL (0-1); LYMPHOCYTES # (AUTO) 1.6 K/uL (1.0-4.8); LYMPHOCYTES % (AUTO) 20.5 % (21.0-51.0); MEAN CORPUSCULAR HEMOGLOBIN 26.2 pg (27.0-33.0); MONOCYTES # (AUTO) 0.9 K/uL (0.1-1.0); NEUTROPHILS # (AUTO) 4.4 K/uL (1.8-7.7); NUCLEATED RED BLOOD CELLS 0.3 % (0.0-0.19); PLATELET COUNT (AUTO) 550 K/uL (130-400); RED BLOOD CELL COUNT(AUTO) 3.28 MIL/uL (4.00-5.50); RED CELL DISTRIBUTION WIDTH 14.6 % (11.0-15.5); WHITE BLOOD COUNT (AUTO) 7.8 K/uL (4.8-10.8)
[2023-04-14] MEDS: HYDROCODONE/ACETAMINOPHEN 5/325 MG TAB PO PRN ×2 (05:11→12:22)
[2023-04-14] MEDS: INSULIN HUMULIN R 100 UNIT/ML 3ML SQ SCH ×4 (06:38→20:01)
[2023-04-14] MEDS: IPRATROPIUM 0.5 MG/2.5 ML INH IH SCH ×3 (07:21→18:57)
[2023-04-14] MEDS: DULOXETINE HCL 30 MG CAP PO SCH (09:25)
[2023-04-14] MEDS: GABAPENTIN 100 MG CAPSULE PO SCH ×3 (09:25→19:52)
[2023-04-14] MEDS: FERROUS SULFATE 325 MG TABLET.DR PO SCH (09:25)
[2023-04-14] MEDS: DOCUSATE SODIUM 100 MG CAP PO SCH ×2 (09:25→19:52)
[2023-04-14] MEDS: METOPROLOL TARTRATE 25 MG TAB PO SCH ×2 (09:26→19:52)
[2023-04-14] MEDS: LISINOPRIL 20 MG TABLET PO SCH (09:26)
[2023-04-14] MEDS: VITAMIN B COMPLEX 1 CAPSULE PO SCH (09:26)
[2023-04-14] MEDS: MULTIVITAMIN WITH MINERALS TABLET PO SCH (09:26)
[2023-04-14] MEDS: ASPIRIN 81MG CHEW TAB PO SCH (09:27)
[2023-04-14] MEDS: POLYETHYLENE GLYCOL 3350 17 GM POWD.PACK PO SCH (09:27)
[2023-04-14] MEDS: NICOTINE 14 MG/ 24 HR PATCH TD SCH (09:27)
[2023-04-14] MEDS: ENOXAPARIN SODIUM 30 MG/0.3 ML SQ SCH (09:28)
[2023-04-14] MEDS: MUPIROCIN OINTMENT 22 GM TUBE TP SCH ×3 (09:28→19:53)
[2023-04-14] MEDS: ONDANSETRON 4MG INJ IV PRN (12:20)
[2023-04-14] MEDS: FAMOTIDINE 20MG VIAL IV SCH (19:41)
[2023-04-14] MEDS: SIMVASTATIN 20 MG TABLET PO SCH (19:52)
[2023-04-14] MEDS: MAGNESIUM OXIDE 400 MG TABLET PO SCH (19:52)
[2023-04-14] MEDS: INSULIN GLARGINE 100 UNITS/ML 10 ML VIAL SQ SCH (20:00)
== END 2023-04-14 20:00 | DRG 235 ==
LOC: 2DH 12:18 → 2CV 04-08 14:40 → 2CH 04-09 21:19 → 2AH 04-10 14:52
PROVIDERS: ADMIT Internal Medicine Critical Care Medicine; ATTEND Internal Medicine Critical Care Medicine
PROC: 02100Z9 Bypass Coronary Artery, One Artery from Left Internal Mammary, Open Approach (ICD-10-PCS; principal; 2023-04-08 14:58)
PROC: 021209W Bypass Coronary Artery, Three Arteries from Aorta with Autologous Venous Tissue, Open Approach (ICD-10-PCS; 2023-04-08 14:58)
PROC: 06BQ4ZZ Excision of Left Saphenous Vein, Percutaneous Endoscopic Approach (ICD-10-PCS; 2023-04-08 14:58)
PROC: 30233N1 Transfusion of Nonautologous Red Blood Cells into Peripheral Vein, Percutaneous Approach (ICD-10-PCS; 2023-04-08 14:58)
DX: I25.10 Atherosclerotic heart disease of native coronary artery without angina pectoris (principal); I21.4 Non-ST elevation (NSTEMI) myocardial infarction; I50.33 Acute on chronic diastolic (congestive) heart failure; J96.01 Acute respiratory failure with hypoxia; J95.1 Acute pulmonary insufficiency following thoracic surgery; E44.0 Moderate protein-calorie malnutrition; I11.0 Hypertensive heart disease with heart failure; E11.65 Type 2 diabetes mellitus with hyperglycemia; D64.9 Anemia, unspecified; E66.09 Other obesity due to excess calories; E78.00 Pure hypercholesterolemia, unspecified; F17.210 Nicotine dependence, cigarettes, uncomplicated; F32.A Depression, unspecified; F41.9 Anxiety disorder, unspecified; J44.9 Chronic obstructive pulmonary disease, unspecified; Z95.5 Presence of coronary angioplasty implant and graft; Z79.899 Other long term (current) drug therapy; Z68.32 Body mass index [BMI] 32.0-32.9, adult
CPT/HCPCS: 36415; 36600; 71045; 80048; 80053; 80061; 80305; 81001; 82330; 82435; 82550; 82803; 82947; 82948; 83036; 83540; 83550; 83605; 83735; 83874; 83880; 84100; 84132; 84295; 84484; 85014; 85018; 85025; 85027; 85347; 85610; 85730; 86850; 86900; 86901; 86923; 87635; 87641; 87804; 93005; 93312; 93880; 94002; 94010; 94150; 94640; 94664; 97039; A4357; A7048; G0378; J0171; J0610; J0690; J1644; J1650; J1815; J1940; J2001; J2250; J2270; J2405; J2440; J2704; J2720; J3010; J3475; J3480; J3490; J7030; J7040; P9016; P9045; A4315; A4452; A4600; A4649; A4930; A6204; A6219; A7040; C1713; C1776; G0168